=== PATIENT | male | born 1985 | race American Indian/Alaskan Native ===

== ENCOUNTER 2018-09-30 09:36 | Emergency (ER) | payer MEDICAID, OTHER ==
[2018-09-30 09:59] VITALS: BP 118/77; PULSE 78; RESP 18; TEMP 98; O2SAT 98
[2018-09-30] MEDS ORDERED: Naproxen 550 mg Tab PO STA (10:21)
--- NOTE | 2018-09-30 10:51 | RAD ---
Date of service: 09/30/2018 PROCEDURE: Left Knee Radiographs. HISTORY: Pain. COMPARISON: None. FINDINGS: BONES: Normal. No fracture. JOINTS: Joint spaces preserved. Small anterior superior patella enthesophyte. JOINT EFFUSION: Trace suprapatellar joint effusion OTHER FINDINGS: None. IMPRESSION: No evidence of acute displaced fracture nor dislocation. Trace suprapatellar joint effusion.
--- NOTE | 2018-09-30 10:52 | RAD ---
Date of service: 09/30/2018 PROCEDURE: Radiographs of the Left Shoulder HISTORY: LEFT SHOULDER PAIN AFTER FALL COMPARISON: No prior. FINDINGS: BONES: Normal. No fracture. JOINTS: Normal. Glenohumeral and acromioclavicular joints preserved. No osteoarthritis. SOFT TISSUES: Normal. OTHER FINDINGS: None. IMPRESSION: Normal radiographs of the left shoulder.
--- NOTE | 2018-09-30 10:53 | RAD ---
Date of service: 09/30/2018 HISTORY: UPPER BACK PAIN AFTER FALL COMPARISON: No prior. FINDINGS: BONES: Alignment maintained. No fracture. DISC SPACES: Normal. SOFT TISSUES: Normal. OTHER FINDINGS: None. IMPRESSION: Normal radiographs of the thoracic spine.
--- NOTE | 2018-09-30 10:58 | RAD ---
Date of service: 09/30/2018 PROCEDURE: Left Wrist Radiographs. HISTORY: LEFT WRIST PAIN AFTER FALL COMPARISON: None. FINDINGS: BONES: No evidence of acute displaced fracture nor dislocation. Tiny lucency seen within the lunate bone felt to represent a tiny benign bone cyst. JOINTS: No dislocation. No significant osteoarthritis SOFT TISSUES: Normal. OTHER FINDINGS: None. IMPRESSION: No evidence of acute displaced fracture dislocation..
--- NOTE | 2018-09-30 11:01 | C.PDOC ---
History Of Present Illness Patient is a 32 year old male who presents to the ED for evaluation of left shoulder, left wrist, left knee, and upper back pain that began after he slipped on the sidewalk onto his left side this morning. Patient denies any head injury, LOC, CP, SOB, visual changes, incontinence, lightheadedness, head or neck pain. Time Seen by Provider: 09/30/18 10:06 Chief Complaint (Nursing): Back Pain History Per: Patient History/Exam Limitations: no limitations Onset/Duration Of Symptoms: Hrs (morning ) Current Symptoms Are (Timing): Still Present Quality Of Discomfort: "Pain" Associated Symptoms: denies: Incontinence Recent travel outside of the [place]: No Additional History Per: Patient Past Medical History Reviewed: Historical Data, Nursing Documentation, Vital Signs Vital Signs: Last Vital Signs Temp 98 F 09/30/18 09:56 Pulse 78 09/30/18 09:56 Resp 18 09/30/18 09:56 BP 118/77 09/30/18 09:56 Pulse Ox 98 09/30/18 09:56 - Medical History PMH: No Chronic Diseases Surgical History: No Surg Hx Family History: States: Unknown Family Hx - Social History Hx Tobacco Use: No Hx Alcohol Use: No Hx Substance Use: No - Immunization History Hx Tetanus Toxoid Vaccination: No Hx Influenza Vaccination: No Hx Pneumococcal Vaccination: No Review Of Systems Eyes: Negative for: Vision Change Cardiovascular: Negative for: Chest Pain Respiratory: Negative for: Shortness of Breath Genitourinary: Negative for: Incontinence Musculoskeletal: Positive for: Shoulder Pain (left ), Back Pain (upper ), Hand Pain (left wrist ), Leg Pain (left knee ). Negative for: Neck Pain, Other (head pain ) Neurological: Negative for: Dizziness, Other (LOC, head injury) Physical Exam - Physical Exam Appears: Non-toxic, No Acute Distress, Other (comfortable ) Skin: Normal Color, Warm, Dry, No Other (abrasion, lacerations, contusions) Head: Atraumatic, Normacephalic Eye(s): bilateral: Normal Inspection Oral Mucosa: Moist Neck: Normal ROM, Supple Chest: Symmetrical, No Deformity Cardiovascular: Rhythm Regular, No Murmur Respiratory: Normal Breath Sounds, No Rales, No Rhonchi, No Wheezing Gastrointestinal/Abdominal: Soft Back: Vertebral Tenderness (tender to palpation at thoracic spine (T4/T5 area) ) Extremity: Normal ROM (bilaterla upper and lower extremities ), Tenderness (left anterior shoulder, left wrist, left knee ), Capillary Refill (less than 2 seconds ), No Deformity, No Swelling, No Other Neurological/Psych: Oriented x3 Gait: Steady ED Course And Treatment O2 Sat by Pulse Oximetry: 98 (on RA ) Pulse Ox Interpretation: Normal - Other Rad X-Ray Left Knee X-Ray: Viewed By Me, Read By Radiologist Interpretation: FINDINGS: BONES: Normal. No fracture. JOINTS: Joint spaces preserved. Small anterior superior patella enthesophyte. JOINT EFFUSION: Trace suprapatellar joint effusion. OTHER FINDINGS: None. IMPRESSION: No evidence of acute displaced fracture nor dislocation. Trace suprapatellar joint effusion. X-Ray Left Shoulder X-Ray: Viewed By Me, Read By Radiologist Interpretation: FINDINGS: BONES: Normal. No fracture. JOINTS: Normal. Glenohumeral and acromioclavicular joints preserved. No osteoarthritis. SOFT TISSUES: Normal. OTHER FINDINGS: None. IMPRESSION: Normal radiographs of the left shoulder. X-Ray Left Wrist X-Ray: Viewed By Me, Read By Radiologist Interpretation: FINDINGS: BONES: No evidence of acute displaced fracture nor dislocation. Tiny lucency seen within the lunate bone felt to represent a tiny benign bone cyst. JOINTS: No dislocation. No significant osteoarthritis. SOFT TISSUES: Normal. OTHER FINDINGS: None. IMPRESSION: No evidence of acute displaced fracture dislocation.. X-Ray Thoracic Spine X-Ray: Viewed By Me, Read By Radiologist Interpretation: FINDINGS: BONES: Alignment maintained. No fracture. DISC SPACES: Normal. SOFT TISSUES: Normal. OTHER FINDINGS: None. IMPRESSION: Normal radiographs of the thoracic spine. Progress Note: X-Ray Left Knee, X-Ray Thoracic Spine, X-Ray Left Wrist, X-Ray Left Shoulder ordered and reviewed. All studies unremarkable. Anaprox DS 550 mg PO administered. Upon reassessment, patient feels better and is stable for discharge. Patient was prescribed medication for symptoms and was instructed to follow up with orthopedic physician in 1 week or return to ED if symptoms worsen. Disposition Counseled Patient/Family Regarding: Studies Performed, Diagnosis, Need For Followup, Rx Given - Disposition Referrals: Dawson Soto MD [Staff Provider] - Disposition: HOME/ ROUTINE Disposition Time: 11:00 Condition: STABLE Additional Instructions: FOLLOW UP WITH ORTHOPEDICS WITHIN 1 WEEK IF SYMPTOMS PERSIST USE MEDICATIONS NEEDED RETURN TO ER IF SYMPTOMS WORSEN Prescriptions: Cyclobenzaprine [Flexeril] 10 mg PO BID PRN #15 tab PRN Reason: Muscle Spasm Naproxen 375 mg PO BID PRN #20 tablet PRN Reason: pain Instructions: Wrist Sprain (DC), Upper Back Pain (DC), Knee Sprain (DC), Shoulder Sprain (DC) Forms: [employer] ([place]) Print Language: TELUGU - POA Present On Arrival: Falls Or Trauma - Clinical Impression Clinical Impression: Thoracic back sprain, Left wrist sprain, Left knee sprain, Sprain of left shoulder - Scribe Statement The provider has reviewed the documentation as recorded by the [place] Arnold All medical record entries made by the [place] were at my direction and personally dictated by me. I have reviewed the chart and agree that the record accurately reflects my personal performance of the history, physical exam, medical decision making, and the department course for this patient. I have also personally directed, reviewed, and agree with the discharge instructions and disposition.
[2018-09-30] MEDS ORDERED: Naproxen 550 mg Tab PO ONE (11:07)
== END 2018-09-30 11:30 | disposition home or self-care (01) ==
LOC: C.ER 09:36
DX: S23.3XXA Sprain of ligaments of thoracic spine, initial encounter (principal); S63.502A Unspecified sprain of left wrist, initial encounter; S83.92XA Sprain of unspecified site of left knee, initial encounter; S43.402A Unspecified sprain of left shoulder joint, initial encounter; W01.0XXA Fall on same level from slipping, tripping and stumbling without subsequent striking against object, initial encounter; Y92.480 Sidewalk as the place of occurrence of the external cause